=== PATIENT | male | born 1960 | race Caucasian/White ===

== ENCOUNTER 2025-04-04 20:58 | Emergency (ER) | payer OTHER, SELFPAY ==
[2025-04-04 20:59] VITALS: BP 137/89
[2025-04-04 21:12] LABS: Hematocrit 42.8 % (39.0-52.0); Hemoglobin 14.1 g/dL (13.0-18.0); Mean Corp Hgb Conc. 32.9 g/dL (33.0-37.0); Mean Corpuscular Volume 80.9 fL (80.0-94.0); Nucleated Red Blood Cells % 0 % (-); Platelet Count 273 10^3/uL (130-400); Red Cell Dist. Width 13.5 % (11.5-14.5)
[2025-04-04 21:40] LABS: ALT (SGPT) 33 U/L (0-50); AST (SGOT) 32 U/L (17-59); Albumin 4.1 g/dl (3.5-5.0); Alkaline Phosphatase 76 U/L (38-126); Blood Urea Nitrogen 25 mg/dl (9-20); Calcium 9.6 mg/dl (8.4-10.2); Carbon Dioxide 26 mmol/L (22-30); Chloride 108 mmol/L (98-107); Glucose 99 mg/dl (70-99); Potassium 4.5 mmol/L (3.5-5.1); Sodium 139 mmol/L (135-145); Total Protein 6.8 g/dl (6.3-8.2); eGFR > 60.00
[2025-04-05 00:18] VITALS: BMI 26.5
[2025-04-05 00:22] VITALS: BP 132/77
--- NOTE | 2025-04-05 00:59 | ED.GENMED ---
History of Present Illness
General
Chief Complaint: Abdominal Pain
Source: patient
Exam Limitations: none
Time Seen by Provider: 04/05/25 00:10
Nursing documentation reviewed up to this point in time: agreed with
History of Present Illness
History of Present Illness:
65-year-old male presenting to the emergency department today for concerns of left inguinal discomfort. Has a known left-sided inguinal hernia and scheduled repair in 1 month. Had some increased discomfort today. Denies any changes in bowel
movements or urination.
Review of Systems
Review of Systems
Allergies reviewed?: Yes
All Other Systems: ROS reviewed and negative except as documented in HPI and ROS
Phy Exam
Physical Exam
Physical Exam:
GENERAL: Alert , in no apparent distress
EYE: pupils equal and reactive
NECK: Supple, no significant adenopathy.
ENT: o/p clr, mmm.
CARDIAC: Regular rate and rhythm .
LUNGS: Clear breath sounds bilaterally, no acute respiratory distress, no wheezes/rales/rhonchi
ABDOMEN: Palpable left-sided inguinal hernia that is easily reducible no pain no redness or warmth overlying. Soft, without focal tenderness, no r/g, no cvat
NEUROLOGICAL: Alert and oriented, no focal neuro deficits
SKIN: Warm and dry, skin intact.
MUSCULOSKELETAL: No edema, well perfused.
PSYCH: Normal and appropriate interaction.
Course
Orders/Labs/Results
Orders:
Orders
04/04/25 21:06
CMP [Comprehensive Metabolic Panel] Urgent
Complete Blood Count/With Diff Urgent
Abnormal Lab Results
04/04/25
21:06
MCH 26.7 L pg
(27.0-31.0)
MCHC 32.9 L g/dL
(33.0-37.0)
Monocytes % 10.6 H %
(1.7-9.3)
Chloride 108 H mmol/L
(98-107)
BUN 25 H mg/dl
(9-20)
04/04/25 21:06
04/04/25 21:06
Vital Signs
Initial and Last Documented VS:
Initial Vital Signs
Temp Pulse Resp BP Pulse Ox
98.7 F 75 18 137/89 98
04/04/25 20:59 04/04/25 20:59 04/04/25 20:59 04/04/25 20:59 04/04/25 20:59
Last Documented Vital Signs
Temp Pulse Resp BP Pulse Ox
98.7 F 64 24 132/77 99
04/04/25 20:59 04/05/25 00:30 04/05/25 00:30 04/05/25 00:22 04/05/25 00:30
MDM/Problems Addressed
MDM/Problems Addressed:
65-year-old male presenting to the emergency department today with concerns of left-sided inguinal pain. Has a known inguinal hernia that has been in and out over the last few months. Has scheduled surgery in 1 month. Here he is in no distress
does have a reducible left inguinal hernia. He is in no distress no changes in bowel movements. No evidence of incarceration. Advised for close surgery follow-up return precautions given.,
*Pulse Oximetry
SaO2: 99
Oxygen Mode of Delivery: Room air
Patient hypoxic: no (99)
*Critical Care Note
Total Time (30-74mins, 75-104mins- exclusive of procedures): Not Applicable
ED Attending Note
-
Portions of this chart may have been created with voice recognition software.� Occasional wrong word or��sound alike� substitutions may have occurred due to the inherent limitations of voice recognition software.
Discharge Plan
Departure
Patient Disposition: Home (Routine Discharge)
Date of Disposition: 04/05/25
Time of Disposition: 01:04
Patient with high blood pressure during this ER visit?: No
Condition: Good
Covid-19: Not Applicable
Discharge Problem:
Inguinal hernia
Instructions: Groin hernia repair (DC)
Activity Restrictions/Additional Instructions:
You came to the emergency department today with concerns of inguinal hernia. Here this does appear to be reducible. If symptoms persist or worsen please assessment. Otherwise close follow-up with general surgery.
Interventions
Interventions:
*Risk Screen - Suicide Last Done: 04/04/25 20:59
*General Assessment Last Done: 04/04/25 20:59
*Neglect/Abuse Screening Last Done: 04/04/25 20:59
*ED- Fall Risk Assessment Last Done: 04/04/25 20:59
*ED COVID-19 Vaccine History Last Done: 04/04/25 20:59
*ED Influenza Vaccine History Last Done: 04/04/25 20:59
RT-Xddvro-Rpihfvftry Assessment Last Done: 04/05/25 00:16
Discharge Date and Time
Print Language: SINHALA
== END 2025-04-05 01:16 | disposition home or self-care (01) ==
LOC: EMR 20:58
PROVIDERS: Emergency Medicine; EMERGENCY PHYSICIAN Emergency Medicine; FAMILY PHYSICIAN Family Medicine
DX: K40.90 Unilateral inguinal hernia, without obstruction or gangrene, not specified as recurrent (principal)
CPT/HCPCS: 99283; 80053; 85025

== ENCOUNTER 2025-05-10 06:41 | Day surgery (SDC) | payer OTHER, SELFPAY ==
[2025-05-02 14:03] VITALS: BMI 25.7
[2025-05-10] VITALS (8 sets, daily range): BP systolic 109–123; BP diastolic 68–82; BMI 25.7
[2025-05-10] MEDS: TYLENOL 1000 MG PO (07:50)
[2025-05-10] MEDS: NORMOSOL-R/PLASMALYTE-A 1000 IV (07:55)
--- NOTE | 2025-05-10 08:14 | W.SUR.PREOP ---
Pre-Operative Surgical Note
-
I have examined this patient prior to the performance of the scheduled procedure.
The patient's condition is unchanged from the time of the current History and
Physical and the patient is able to undergo the scheduled procedure.
--- NOTE | 2025-05-10 08:14 | HP.FOC2 ---
Focused History & Physical
Chief Complaint
HPI:
Chief Complaint: This is a 65-year-old male who presents with a symptomatic left and palpable right inguinal hernia
HPI / Indication for Planned Procedure: This is a 65-year-old male who presents with bilateral inguinal hernias. Will plan for robotic bilateral inguinal hernia repair with mesh.
Relevant Past Medical History: Negative
Relevant Social History: Negative
Relevant Family History: Negative
Relevant Past Surgical History: Negative
Review of Systems
Review of Pertinent Systems: All Systems Negative
Medication
See Medication form for detailed medications: Yes
Medication List (including Herbals & OTC):
fluorometholone acetate 0.1 % eye drops,suspension (Flarex) 1 drp BOTH EYES BID 05/03/25
Medications Reviewed: Yes
Allergies and Reactions
Patient has Allergies: No
Noted Allergies and Reactions:
Allergy/AdvReac Type Severity Reaction Status Date / Time
No Known Allergies Allergy Verified 05/10/25 07:47
Pertinent Physical Exam
All Other Systems: Negative
Head/Neck: Normal
Diagnosis / Assessment
This is a 65-year-old male who presents with bilateral inguinal hernias. Will plan for robotic bilateral inguinal hernia repair with mesh.
Plan / Procedure
This is a 65-year-old male who presents with bilateral inguinal hernias. Will plan for robotic bilateral inguinal hernia repair with mesh.
Anesthesia/Sedation to be done by Anesthesia Provider: Yes
--- NOTE | 2025-05-10 10:36 | W.IMMPOSTOP ---
Surgical Immed Post Op Note
-
Primary Surgeon: Byron Ward MD
Assisting Surgeon: None
Pre-op Diagnosis: Bilateral inguinal hernias
Post-op Diagnosis: Left inguinal hernia
Procedure Performed: Robotic left inguinal hernia repair with mesh
Anesthesia Type: General
Specimen / Cultures: None
Estimated Blood Loss: 7 cc
Complications: None
Operative Findings: Large left indirect inguinal hernia without direct or femoral components. No true cord lipoma though some fat around the epigastrics was debulked. There was no inguinal hernia noted on the right side, and since the patient
endorsed no pain on the right side preoperatively no dissection was undertaken.
--- NOTE | 2025-05-10 10:38 | OR.RPT ---
Operative Report
Operative Report
Patient Name: Ralph Hi
: 1960
Date of Operation: 05/10/2025
Preoperative Diagnosis: Bilateral inguinal hernias
Postoperative Diagnosis: Left inguinal hernia
Procedure(s):
Robotic Inguinal Hernia Repair with mesh, left (MINA approach)
Surgeon(s):
Dr. Ward
Tube Backer(s):
VICKY Jesus
Anesthesia: General
Estimated Blood Loss: 7 cc
Urine Output: None
Drains/Lines/Implants: Large 3D Max Bard mid weight uncoated polypropylene mesh
Specimens: None
Indication for surgery: The patient has a history of left groin pain and noted to have hernia as well as a contralateral impulse though the right side was asymptomatic. Following review of therapeutic options they have elected to undergo a
minimally invasive repair.
Operative Findings: Large left indirect inguinal hernia without direct or femoral components. No true cord lipoma though some fat around the epigastrics was debulked. There was no inguinal hernia noted on the right side, and since the patient
endorsed no pain on the right side preoperatively no dissection was undertaken.
Details of the operation:
The patient was brought to the Operating Room and placed in the supine position with the arms tucked. IV antibiotics were infused and Venodyne stockings placed. Following uneventful induction of general endotracheal anesthesia, an orogastric tube
was placed. The abdomen was prepped and draped in the usual sterile fashion. The abdomen was entered using a Veress technique which required 1 pass(es), pneumoperitoneum to 15 mmHg was obtained without difficulty. An 8mm trochar was passed through
the abdominal wall roughly 20 cm cephalad to the inguinal canal. We then confirmed that no inadvertent injury was made while passing the trocar or Veress needle. We then placed two additional 8 mm ports in the left upper and right upper quadrants.
We then docked the robot with a Prograsper in the left hand port and monopolar scissors in the right. A large left indirect inguinal defect was clearly visible with some omentum in the defect. No defect was noted on the right. After lysing the
omental adhesion and the defect, we began by creating a flap on the left at the level of the ASIS laterally working our way medially to the medial umbilical fold. Staying onto the peritoneum we were able to circumferentially dissect around the
hernia sac and and peel it off of the underlying spermatic cord and testicular vessels, taking care to preserve them. There was significant amount of scar tissue near the tip of the hernia sac dense adherent to the surrounding critical structures
so this was left behind in and abandon the sac type technique. Medially we identified the midline pubis as well as Manoj's ligament and ensured to dissect 2 cm below the pubic rim over the bladder. After exposure of the entire myopectineal
orifice we identified and reduced: [A large sized indirect inguinal hernia through a small aperture, no direct inguinal hernia, no femoral hernia, and no cord lipoma
We then fixated a large 3D max mesh with a 2-0 Vicryl stitch at coopers medially and superior laterally. The flap was then closed with a running 2-0 barbed monocryl suture ensuring that the tail was cut flush with the medial fat pad so that no
barbs were exposed. During the closure of the flap an Angiocath was inserted and 20 cc of quarter percent Marcaine was instilled. The area in the flap cavity was then evacuated of air confirming that the mesh was flush and there were no folds.
The small rent in the peritoneum/hernia sac was closed with 2-0 Vicryl. All needles and instruments were then removed and the robot was undocked. The abdomen was then desufflated, and pneumoperitoneum evacuated. All skin sites were then closed
with 4-0 Monocryl followed by Dermabond. Counts were correct and overall, the patient tolerated the procedure well and was taken to the Recovery Room postoperatively in stable condition.
I was the attending physician and performed the procedure with assistance of the AUTOMATIC PROFILE SANDER OPERATOR above. I was present for all portions of the case, excluding skin closure.
Byron Ward MD
== END 2025-05-10 12:15 | disposition home or self-care (01) ==
LOC: SDS 06:41
PROVIDERS: ATTENDING PHYSICIAN Surgery; FAMILY PHYSICIAN Family Medicine
DX: K40.90 Unilateral inguinal hernia, without obstruction or gangrene, not specified as recurrent (principal)
CPT/HCPCS: 49650; 36415; 87070; 93005; C1781